=== PATIENT | male | born 1995 | race Two or more races ===

== ENCOUNTER 2018-07-12 19:11 | Emergency (ER) | payer MEDICAID ==
[~2018-07-12] VITALS: Ht 170.2 cm; Wt 68.0 kg
[~2018-07-12 19:11] MED LIST: BUPR75TA5 PO; CARB200T PO; FLUV100C PO; QUET200T4 PO
--- NOTE | 2018-07-12 19:29 | NUR ---
YVROSE LU FOR C/O SEZIURE OCCURING LAW CLERK. FRIENDS CALLED THE AMBULANCE. PT. REPORTS HE DOESN'T REMEMBER EVENT. "I THINK I HIT MY HEAD BECAUSE IT HURTS." PT. VERY DROWSY BUT ORIENTED X 4. PT. REPORTS 5 DAY GRISSOM OF METH USE. IV ESTABLIHSED EN ROUTE. PT. ALSO C/O STERNAL CP THAT HE REPORTS STARTING BEFORE THE SEZIURE. PT. REPORTS CP REMAINS 8/10 AT THIS TIME. EKG WAS DONE ON ARRIVAL AND PRESENTED TO ERMD. LAB AND X-RAY HAVE BOTH BEEN TO BS FOR ORDERS. CALL LIGHT IN REACH. PADDING PLACED ON BED RAILS, SEZIURE PRECAUTIONS IN PLACE. CALL LIGHT IN REACH. ALL SAFETY MEASURES OBSERVED.
[2018-07-12 19:38] LABS: BASOPHILS # (AUTO) 0.06 x10^3/uL (0-0.1); BASOPHILS % (AUTO) 1 % (0-1); EOSINOPHILS % (AUTO) 1 % (1-7); LYMPHOCYTES # (AUTO) 2.69 x10^3/uL (1-3.4); LYMPHOCYTES % (AUTO) 34 % (22-44); MD NO; MEAN CORPUSCULAR HEMOGLOBIN 31.2 pg (27.5-34.5); MEAN CORPUSCULAR HGB CONC 34.3 g/dL (33.2-36.2); MEAN CORPUSCULAR VOLUME 90.9 fL (81-97); MEAN PLATELET VOLUME 7.5 fL (7.4-10.4); MONOCYTES # (AUTO) 0.71 x10^3/uL (0.2-0.8); MONOCYTES % (AUTO) 9 % (2-9); NEUTROPHILS # (AUTO) 4.26 x10^3/uL (1.8-6.8); NEUTROPHILS % (AUTO) 54 % (42-75); PLATELET COUNT 329 x10^3/uL (130-400); RED BLOOD COUNT 5.54 x10^6/uL (4.38-5.82); RED CELL DISTRIBUTION WIDTH 12.8 % (9.4-14.8)
[2018-07-12 19:48] LABS: ALBUMIN 4.7 g/dL (3.4-5.0); ANION GAP 9 mmol/L (5-15); CALCIUM 9.5 mg/dL (8.5-10.1); CHLORIDE 107 mmol/L (98-107)
[2018-07-12 19:55] LABS: CREATINE KINASE, TOTAL 104 U/L (39-308); CREATININE 0.96 mg/dL (0.7-1.3); TROPONIN I < 0.015 ng/mL (0.000-0.045)
--- NOTE | 2018-07-12 20:03 | NUR ---
PT. RESTING ON GURNEY WITH NADN. REMAINS DROWSY. ALL MONTIRORS REMAIN IN PLACE. SEZIURE PRECAUTIONS REMAIN IN PLACE. CALL LIGHT IN REACH. PT. REQUESTING FOOD. WILL DISCUSS WITH ERP.
--- NOTE | 2018-07-12 20:59 | NUR ---
PT. IN SITTING POSITION ON GURNEY WITH EYES CLOSED. PT. WAKES TO LOUD VERBAL STIMULI BUT IS VERY DROWSY. PER CHRISTIAN BALLARD OK FOR PT. TO HAVE FOOD PER HIS EARLIER REQUEST. COFFEE CART CLOSED. ATTEMPTED TO PROVIDE CRACKERS AND STING CHEESE TO PT. DIDN'T GIVE PT. FOOD PT. UNABLE TO KEEP EYES OPEN FOR LONGER THAN A FEW SECONDS AT THIS TIME. VS UPDATED. SEZIURE PRECAUTIONS IN PLACE. CALL LIGHT IN REACH. ALL OTHER SAFETY MEASURES ALSO MAINTAINED.
--- NOTE | 2018-07-12 21:55 | NUR ---
PT. RESTING ON GURNEY WITH EYES CLOSED. PT. WILL NOT OPEN EYES TO VERBAL STIMULATION, UPON STERNAL RUB PT. OPENS EYES FOR A SPLIT SECOND AND IMMEDIATELY CLOSES THEM AGAIN. EVEN, NON-LABORED RESPIRAIONS NOTED. ALL MONITORS IN PLACE. NSR ON MONITOR. 99% O2 SAT ON RA. WILL CONTINUE TO MONITOR.
--- NOTE | 2018-07-12 22:30 | NUR ---
PT. UNABLE TO SIT UP WITHOUT FALLING BACK ASLEEP, UNABLE TO SAFELY D/C PT. AT THIS TIME. CHRISTIAN BALLARD AWRE OF THIS. SHOEMAKER APPRENTICE ALSO AWARE. WILL CONTINUE TO MONITOR PT. UNTIL PT. ABLE TO SAFELY D/C. VSS.
[2018-07-12 23:16] VITALS: BP 99/48
--- NOTE | 2018-07-12 23:16 | NUR ---
VS UPDATED. PT. REMAINS VERY DROWSY AND IS VERY DIFFICULT TO AROUSE. WITH STERNAL RUB PT. ONLY OPENS EYES FOR A SECOND BEFORE DOZING OFF AGAIN. WILL CONTINUE TO MONITOR PT. ALL SAFETY MEASURES OSBERVED.
--- NOTE | 2018-07-13 00:03 | NUR ---
PT. NOW SITTING UP ON GURNEY AND ABLE TO PASS A SWALLOW EVAL WITH WATER. PT. EATING STRING CHEESE AND CRACKERS PROVIDED. PT. ABLE TO GET UP, FULLY DRESS SELF AND AMBULATE WITH STEADY GAIT.
== END 2018-07-13 00:11 | disposition home or self-care (01) ==
LOC: ED 19:42
DX: R07.89 Other chest pain (principal); G40.509 Epileptic seizures related to external causes, not intractable, without status epilepticus; F15.10 Other stimulant abuse, uncomplicated; F41.9 Anxiety disorder, unspecified; F31.9 Bipolar disorder, unspecified; F20.9 Schizophrenia, unspecified
CPT/HCPCS: 36415; 71045; 80048; 80164; 82040; 82550; 84484; 85025; 93005; 99284

== ENCOUNTER 2018-09-03 16:12 | Emergency (ER) | payer MEDICAID ==
[~2018-09-03] VITALS: Ht 170.2 cm; Wt 63.0 kg
[2018-09-03] MEDS ORDERED: FLUO10CA13 PO (16:34)
[2018-09-03] MEDS ORDERED: DIVA125T2 PO (16:34)
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
[2018-09-03] MEDS ORDERED: SODIUM CHLORIDE FLUSH 10ML SYR IVF ONE (17:00)
--- NOTE | 2018-09-03 17:02 | NUR ---
PATIENT PROVIDED URINAL, UNABLE TO URINATE AT THIS TIME.
[2018-09-03 17:12] LABS: BASOPHILS # (AUTO) 0.04 x10^3/uL (0-0.1); BASOPHILS % (AUTO) 1 % (0-1); EOSINOPHILS # (AUTO) 0.03 x10^3/uL (0-0.4); EOSINOPHILS % (AUTO) 0 % (1-7); LYMPHOCYTES # (AUTO) 1.72 x10^3/uL (1-3.4); LYMPHOCYTES % (AUTO) 23 % (22-44); MD NO; MEAN CORPUSCULAR HEMOGLOBIN 31.3 pg (27.5-34.5); MEAN CORPUSCULAR HGB CONC 33.3 g/dL (33.2-36.2); MEAN PLATELET VOLUME 7.8 fL (7.4-10.4); MONOCYTES # (AUTO) 0.56 x10^3/uL (0.2-0.8); MONOCYTES % (AUTO) 8 % (2-9); NEUTROPHILS # (AUTO) 5.04 x10^3/uL (1.8-6.8); NEUTROPHILS % (AUTO) 68 % (42-75); PLATELET COUNT 285 x10^3/uL (130-400); RED BLOOD COUNT 4.72 x10^6/uL (4.38-5.82); RED CELL DISTRIBUTION WIDTH 13.3 % (9.4-14.8)
[2018-09-03 17:22] LABS: ALANINE AMINOTRANSFERASE 14 U/L (12-78); ALBUMIN 4.3 g/dL (3.4-5.0); ANION GAP 6 mmol/L (5-15); CALCIUM 8.8 mg/dL (8.5-10.1); CHLORIDE 108 mmol/L (98-107); CREATININE 0.84 mg/dL (0.7-1.3)
[2018-09-03 17:24] LABS: SALICYLATE LEVEL < 1.7 mg/dL (2.8-20.0)
[2018-09-03 17:25] LABS: ALKALINE PHOSPHATASE 92 U/L (45-117); BILIRUBIN,TOTAL 0.4 mg/dL (0.2-1.0); TOTAL PROTEIN 7.2 g/dL (6.4-8.2)
--- NOTE | 2018-09-03 17:45 | NUR ---
break coverage: assumed care of pt on behalf of primary RN for break. pt resting on gurney in position of comfort. sitter at bedside. room secured
--- NOTE | 2018-09-03 18:48 | NUR ---
VS UPDATED IN CHART, PATIENT PROVIDED DINNER TRAY PER REQUEST, ALL SAFETY MEASURES IN PLACE. NADN. SITTER AT DOORWAY WITH PATIENT IN SIGHT. PATIENT UNABLE TO URINATE FOR UA.
--- NOTE | 2018-09-03 19:52 | NUR ---
PATIENT SITTING ON EDGE OF BED WITH SALVADOR VINES. Addendum: 09/03/18 at 2012 by LIBIA SITTER AT DOORWAY WITH PATIENT IN SIGHT.
--- NOTE | 2018-09-03 19:55 | NUR ---
UA COLLECTED AND SENT TO LAB.
--- NOTE | 2018-09-03 19:58 | NUR ---
TELEPSYCH ROBOT AT BEDSIDE.
[2018-09-03 20:00] VITALS: BP 115/81
--- NOTE | 2018-09-03 20:11 | NUR ---
REPORT TO SOC.
[2018-09-03 20:23] LABS: MICROSCOPIC NOT IND
--- NOTE | 2018-09-03 20:23 | NUR ---
PATIENT SITTING IN [facility] SPEAKING WITH PSYCHIATRIST ON TELEPSYCH ROBOT.
[2018-09-03 20:26] LABS: CULTURE INDICATED? NO
[2018-09-03 20:34] LABS: AMPHETAMINE SCREEN, URINE Positive (Negative); BARBITURATE SCREEN, URINE Negative (Negative); BENZODIAZEPINE SCREEN, URINE Negative (Negative); CANNABINOID SCREEN, URINE Positive (Negative); COCAINE SCREEN, URINE Negative (Negative); METHADONE SCREEN, URINE Negative (Negative); OPIATE SCREEN, URINE Negative (Negative)
--- NOTE | 2018-09-03 20:41 | NUR ---
PATIENT RIPPED OUT IV AFTER SPEAKING WITH TELEPSYCH PER SITTER AT DOORWAY. PATIENT EASILY REDIRECTED, SITTING IN GURNEY, ANXIOUS BUT COOPERATIVE AT THIS TIME, PATIENT TO BE ADMIT. ADMIT ORDER IN, AWAITING BED ASSIGNMENT. SITTER AT DOORWAY WITH PATIENT IN SIGHT, NADN. ALL SAFETY MEASURES IN PLACE.
[2018-09-03] MEDS ORDERED: ZIPRASIDONE 20MG CAPSULE ONE (20:57)
--- NOTE | 2018-09-03 20:57 | NUR ---
PATIENT ANXIOUS, [facility]. [place] PO TO BE ORDERED, REPORT TO GAYATHRI CONNOLLY WHO WILL ADMINISTER MEDICATION.
[2018-09-03] MEDS ORDERED: POLYETHYLENE GLYCOL 17 GM PACKET PO PRN (21:00)
[2018-09-03] MEDS ORDERED: BISACODYL 10 MG SUPP PR PRN (21:00)
[2018-09-03] MEDS ORDERED: ONDANSETRON ODT 4 MG PO PRN (21:00)
[2018-09-03] MEDS ORDERED: ZIPRASIDONE 20MG CAPSULE PO SCH (21:00)
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
[2018-09-03] MEDS ORDERED: ZIPRASIDONE 20 MG INJ IM ONE (21:08)
--- NOTE | 2018-09-03 21:22 | NUR ---
RN TO BEDSIDE TO MEDICATE PT. PT INITIALLY REFUSING. SECURITY CALLED FOR STANDBY ASSITANCE. PT REDIRECTED WITH VERBAL INTERVENTION BY SECURITY AND AGREED TO TAKE MEDICATION. PT REFUSING PO FOOD. SNACKS PROVIDED AND PT ENCOURAGED TO EAT. SECURITY REMAINS AT BEDSIDE. SITTER REQUESTED.
--- NOTE | 2018-09-03 21:41 | NUR ---
PT NOW RESTING COMFORTABLY IN [facility]. ROOM SECURE. SITTER PRESENT
--- NOTE | 2018-09-03 22:34 | NUR ---
Patient with medicaid traditional. Packet fax[facility] to [facility] and [facility]. Conformations received.
--- NOTE | 2018-09-03 22:53 | NUR ---
Packet faxed to [facility]
--- NOTE | 2018-09-03 23:01 | NUR ---
PT RESTING IN GURNEY W/ EYES CLOSED. EVEN/REGULAR RESPIRATIONS NOTED. SITTER AT DOORWAY; ROOM REMAINS SECURE.
--- NOTE | 2018-09-03 23:13 | NUR ---
REPORT TO GAYATHRI HIGH ON .
[2018-09-04] MEDS ORDERED: SENNA/DOCUSATE TABLET PO SCH (09:00)
== END 2018-09-04 00:31 ==
LOC: ED 17:49 → UNDOADMIN 20:37 → EDIP 20:37 → ED 09-04 00:31
DX: T50.901A Poisoning by unspecified drugs, medicaments and biological substances, accidental (unintentional), initial encounter (principal); R11.2 Nausea with vomiting, unspecified; F20.9 Schizophrenia, unspecified; Z59.0 Homelessness; Y92.89 Other specified places as the place of occurrence of the external cause
CPT/HCPCS: 36415; 80053; 80164; 80307; 81003; 83735; 85025; 93005; 99285

== ENCOUNTER 2018-09-03 22:05 | Inpatient (IN) | payer MEDICAID ==
[~2018-09-03] VITALS: Ht 162.6 cm; Wt 65.7 kg
[~2018-09-03 22:05] MED LIST changes: +DIVA125T2 PO; +FLUO10CA13 PO
[2018-09-03] MEDS ORDERED: POLYETHYLENE GLYCOL 17 GM PACKET PO PRN (23:00)
[2018-09-03] MEDS ORDERED: ACETAMINOPHEN 325 MG TABLET PO PRN (23:00)
[2018-09-03] MEDS ORDERED: BISACODYL 10 MG SUPP PR PRN (23:00)
[2018-09-03] MEDS ORDERED: DOCUSATE 100 MG CAPSULE PO PRN (23:00)
[2018-09-04] MEDS ORDERED: ZIPRASIDONE 20MG CAPSULE PO PRN
[2018-09-04] MEDS ORDERED: LORazepam 1MG TABLET PO PRN
[2018-09-04 01:10] VITALS: BP 96/57
[2018-09-04 07:46] VITALS: BP 103/66
[2018-09-04 13:35] LABS: BASOPHILS # (AUTO) 0.08 x10^3/uL (0-0.1); BASOPHILS % (AUTO) 1 % (0-1); EOSINOPHILS # (AUTO) 0.11 x10^3/uL (0-0.4); EOSINOPHILS % (AUTO) 1 % (1-7); LYMPHOCYTES % (AUTO) 27 % (22-44); MD NO; MEAN CORPUSCULAR HEMOGLOBIN 31.1 pg (27.5-34.5); MEAN CORPUSCULAR HGB CONC 32.9 g/dL (33.2-36.2); MEAN CORPUSCULAR VOLUME 94.4 fL (81-97); MEAN PLATELET VOLUME 7.9 fL (7.4-10.4); MONOCYTES # (AUTO) 0.65 x10^3/uL (0.2-0.8); MONOCYTES % (AUTO) 9 % (2-9); NEUTROPHILS # (AUTO) 4.62 x10^3/uL (1.8-6.8); NEUTROPHILS % (AUTO) 62 % (42-75); PLATELET COUNT 281 x10^3/uL (130-400); RED BLOOD COUNT 5.03 x10^6/uL (4.38-5.82); RED CELL DISTRIBUTION WIDTH 13.7 % (9.4-14.8)
[2018-09-04 13:39] LABS: ALANINE AMINOTRANSFERASE 18 U/L (12-78); ALBUMIN 4.1 g/dL (3.4-5.0); ANION GAP 3 mmol/L (5-15); CALCIUM 8.9 mg/dL (8.5-10.1); CHLORIDE 108 mmol/L (98-107)
[2018-09-04 13:40] LABS: CHOL/HDL RATIO 3.4; LDL/HDL RATIO 1.9 (0.5-3.0)
[2018-09-04 13:43] LABS: ALKALINE PHOSPHATASE 84 U/L (45-117); BILIRUBIN,TOTAL 0.6 mg/dL (0.2-1.0); FREE T4 (FREE THYROXINE) 0.84 ng/dL (0.76-1.46); TOTAL PROTEIN 7.2 g/dL (6.4-8.2)
[2018-09-04 14:06] LABS: THYROID STIMULATING HORMONE 0.312 mIU/L (0.358-3.740)
[2018-09-04 19:48] VITALS: BP 102/63
[2018-09-05 07:30] VITALS: BP 125/76
[2018-09-05 19:42] VITALS: BP 111/65
[2018-09-06 07:29] VITALS: BP 119/74
[2018-09-06 19:46] VITALS: BP 123/67
[2018-09-07 07:18] VITALS: BP 114/72
[2018-09-07 19:34] VITALS: BP 118/81
[2018-09-08 07:24] VITALS: BP 108/75
[2018-09-08 11:35] LABS: FREE T4 (FREE THYROXINE) 0.76 ng/dL (0.76-1.46); THYROID STIMULATING HORMONE 0.649 mIU/L (0.358-3.740)
[2018-09-08 19:27] VITALS: BP 120/88
[2018-09-09 07:25] VITALS: BP 116/70
== END 2018-09-09 11:45 | disposition home or self-care (01) | DRG 885 ==
LOC: 3E 22:05
PROVIDERS: ADMIT Psychiatry & Neurology Psychiatry; ATTEND Psychiatry & Neurology Psychiatry
DX: F20.9 Schizophrenia, unspecified (principal); F15.20 Other stimulant dependence, uncomplicated; R45.851 Suicidal ideations; Z91.19 Patient's noncompliance with other medical treatment and regimen; Z59.0 Homelessness; F17.200 Nicotine dependence, unspecified, uncomplicated; Z82.5 Family history of asthma and other chronic lower respiratory diseases
CPT/HCPCS: 36415; 71045; 80053; 80061; 82140; 82607; 84146; 84439; 84443; 85025; 86592; 93005

== ENCOUNTER 2018-09-24 21:49 | Emergency (ER) | payer MEDICAID ==
[~2018-09-24] VITALS: Ht 180.3 cm; Wt 79.0 kg
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
[2018-09-24 22:10] VITALS: BP 121/86
--- NOTE | 2018-09-24 22:14 | NUR ---
PT UNCOOPERATIVE WITH PHYSICAL EXAM AND ASSESSMENT. DR CHAPA AT BS WITH [employer]. PER DR CHAPA, NO INJURIES NOTED DURING PHYSICIAN ASSESSMENT.
== END 2018-09-24 22:17 | disposition home or self-care (01) ==
LOC: ED 22:07
DX: F15.150 Other stimulant abuse with stimulant-induced psychotic disorder with delusions (principal); F17.200 Nicotine dependence, unspecified, uncomplicated; F20.9 Schizophrenia, unspecified; F31.9 Bipolar disorder, unspecified
CPT/HCPCS: 99284

== ENCOUNTER 2018-09-24 23:25 | Emergency (ER) | payer MEDICAID ==
[~2018-09-24] VITALS: Ht 180.3 cm; Wt 82.0 kg
[2018-09-24 23:34] VITALS: BP 122/71
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
--- NOTE | 2018-09-24 23:47 | NUR ---
PT TO CT AT THIS TIME.
--- NOTE | 2018-09-25 00:05 | NUR ---
PT BACK FROM CT AT THIS TIME VIA GURNEY AND ESCORTED BY SECURITY.
--- NOTE | 2018-09-25 01:11 | NUR ---
PT D/C WITH D/C SUMMARY IN CARE OF TRANSPORTATION EQUIPMENT PAINTER. PT CLEARED MEDICALLY PER DR CHAPA. PT TRANSPORT DENIES ANY OTHER NEEDS FOR INTAKE OF PT AT [facility].
[2018-09-25] MEDS ORDERED: OMNIPAQUE 350 MG/ML, 100ML BOTTLE ONE (05:39)
== END 2018-09-25 01:15 | disposition home or self-care (01) ==
LOC: ED 09-25
DX: S00.11XA Contusion of right eyelid and periocular area, initial encounter (principal); S10.93XA Contusion of unspecified part of neck, initial encounter; R51 Headache; Y04.8XXA Assault by other bodily force, initial encounter; Y93.89 Activity, other specified; Y92.69 Other specified industrial and construction area as the place of occurrence of the external cause; Y99.8 Other external cause status
CPT/HCPCS: 70450; 70486; 70498; 72125; 99284; Q9967